=== PATIENT | female | born 2000 | race Caucasian/White ===

== ENCOUNTER 2022-03-09 15:29 | Inpatient (IN) ==
[2022-03-09 16:36] LABS: Appearance Urine Clear (Clear); Bilirubin Urine Negative (Negative); Blood Urine Negative (Negative); Color Urine Yellow; Glucose Urine UA Negative (Negative); Ketones Urine Negative (Negative); Leukocyte Esterase Urine Negative (Negative); Nitrite Urine Negative (Negative); Pregnancy Test, Urine Negative (Negative); Protein Urine Negative (Negative); Specific Gravity Urine 1.016 (1.000-1.030); Urobilinogen Urine Negative (Negative); pH Urine 6.5 (4.5-7.5)
[2022-03-09 16:52] LABS: Basophils # (auto) 0.03 K/uL (0-0.2); Basophils % (auto) 0.5 %; Eosinophils # (auto) 0.07 K/uL (0-0.50); Eosinophils % (auto) 1.1 %; Hematocrit (blood only) 41.7 % (34.1-44.9); Hemoglobin 14.3 g/dl (12.0-16.0); Immature Granulocytes # (auto) 0.02 K/uL (0.00-0.02); Immature Granulocytes % (auto) 0.3 %; Lymphocytes # (auto) 2.73 K/uL (1.2-3.4); Lymphocytes % (auto) 43.8 %; Mean Corpuscular Hemoglobin 28.2 pg (25.0-34.0); Mean Corpuscular Hgb Conc 34.3 g/dL (32.0-36.0); Mean Corpuscular Volume 82.2 fL (80.0-100.0); Mean Platelet Volume 10.3 fL (9.4-12.3); Monocytes # (auto) 0.36 K/uL (0.24-0.82); Monocytes % (auto) 5.8 %; Neutrophils # (auto) 3.03 K/uL (1.4-6.5); Neutrophils % (auto) 48.5 %; Platelet Count 295 K/uL (130-400); Red Blood Count 5.07 M/uL (3.93-5.22); White Blood Count 6.24 K/ul (4.8-10.8)
--- NOTE | 2022-03-09 17:01 | Emergency Department Note ---
Impression & Plan Depression with suicidal ideation ED Provider Note Provider: Darrel Freeman MD DATE OF SERVICE: 03/09/2022 CHIEF COMPLAINT: Bad thoughts HISTORY OF PRESENT ILLNESS: Patient is a 21-year-old female reports distant history of eating disorder presenting here today stating that she has had worse karon thoughts of depression and thoughts over the last year. Significant worsened over the semester. States now that at times she feels unsafe that she might try to harm her self but has not attempted. Patient states she not currently having eating disorder issues now. States he tried to talk to a counselor on campus but this was not very helpful. States she feels like there is so much building up and going on that she is under so much stress that she does not want a being alive anymore. Patient states she has been sleeping okay. Denies any drug or alcohol issues. States she used to be on psychotropic medicines in December for a month but it did not help so she stopped them and she is not feeling that safe regarding medications as to what she might do with them. REVIEW OF SYSTEMS: A total of 10 review of systems was obtained and negative except as stated above in the HPI. PAST MEDICAL HISTORY: As noted above MEDICATIONS: OCPs SOCIAL HISTORY: Some marijuana use, [facility] student from the [place] area by her report PHYSICAL EXAM: GENERAL: alert and oriented seated on the bed crying Head: normocephalic and atraumatic EYES: No injection or icterus NECK: Trachea midline. ENT: Mucous membranes pink and moist. LUNGS: Airway patent. No retractions. Breath sounds clear with good air entry bilaterally. HEART: Regular rate and rhythm. No chest wall tenderness SKIN: Acyanotic, warm, dry, without rashes EXTREMITIES: Without swelling, tenderness or deformity NEUROLOGICAL: No focal deficits. No aphasia. No facial droop or slurred speech. Ambulatory. Psych: Very tearful and anxious. Denies hallucinations or HI. Reports significant SI but no clear plan or attempt. Patient's laboratory studies reviewed. Differential includes Mood disorder, infection, hypoglycemia, electrolyte abnormalities, cardiac sources, intracerebral event, toxicologic, trauma, neuro logic, as well as other pathologies. IMPRESSION/MEDICAL DECISION MAKING: Patient presents stating she is having very depressed and anxious thoughts. States she is feeling unsafe and that she might harm her self but does not have a plan. Basic labs completed. No significant abnormality noted. Not currently on medications. Seen with case management. Patient after discussion was wishing for inpatient treatment involuntary referral be made given her significant depression. Referral is made and accepted here for inpatient psychiatric care. Patient was in agreement and voluntary commitment signed. DIAGNOSIS: Depression with suicidal ideation. DISPOSITION: Accepted to [facility] [address] [facility] for further inpatient psychiatric care. Patient was agreeable with this plan. Past Med/Surg History Medical History (Updated 03/09/22 @ 23:46 by Darrel Freeman M.D.) No pertinent past medical history Surgical History (Updated 01/16/21 @ 07:13 by Greta Alvarez) No pertinent past surgical history Social History (System 01/16/21 @ 07:13 by Greta Alvarez) Smoking Status: Current some day smoker Tobacco Type: E-cigarettes / Vaping Preferred Language: Guatemalan Communication Ability: Effective Inspector Optical Instrument Required: No Beliefs That Will Affect Care: None Feels Safe at Home: Yes Assistive Devices: None Allergies Allergies Allergy/AdvReac Type Severity Reaction Status Date / Time No Known Allergies Allergy Unverified 02/02/21 13:32 Home Meds Home Medications Medication Instructions Recorded Confirmed norethindrone 1 mg-ethinyl 1 tab PO QAM 02/02/21 03/09/22 estradiol 20 mcg (21)-iron 75 mg (7) tablet (Ynes Fe 04/24 ()) Results & Data (ED) Vital Signs Vital Signs - 24 hr 03/09/22 15:42 03/09/22 19:16 Temperature 36.6 C 37.2 C Temperature Source Temporal Artery Scan Oral Pulse Rate 83 Pulse Rate [Finger] 79 Respiratory Rate 20 16 Respiratory Effort / Characteristics Non-Labored Non-Labored Spontaneous Respiratory Depth Normal Normal Respiratory Pattern Regular Blood Pressure 154/89 H Blood Pressure [Right Arm] 123/65 Blood Pressure Mean 110 Blood Pressure Mean [Right Arm] 84 Pulse Oximetry 93 98 Oxygen Delivery Method Room Air Room Air Sepsis Recent Fever Within 48 Hours No Sepsis New/Unexplained Change in Mental Status N/A Sepsis Action Taken by Nursing No Action Required Laboratory Data Result diagrams: 03/09/22 16:30 03/09/22 16:30 Lab Results 03/09/22 03/09/22 03/09/22 Range/Units 16:00 16:00 16:00 WBC (4.8-10.8) K/ul RBC (3.93-5.22) M/uL Hgb (12.0-16.0) g/dl Hct (34.1-44.9) % MCV (80.0-100.0) fL MCH (25.0-34.0) pg MCHC (32.0-36.0) g/dL RDW Std Deviation (36.4-46.3) fL RDW Coeff of Kathrine (11.5-14.5) % Plt Count (130-400) K/uL MPV (9.4-12.3) fL Immature Gran % (Auto) % Neut % (Auto) % Lymph % (Auto) % Bailey % (Auto) % Eos % (Auto) % Baso % (Auto) % Neut # (Auto) (1.4-6.5) K/uL Lymph # (Auto) (1.2-3.4) K/uL Bailey # (Auto) (0.24-0.82) K/uL Eos # (Auto) (0-0.50) K/uL Baso # (Auto) (0-0.2) K/uL Immature Gran # (Auto) (0.00-0.02) K/uL Sodium (136-145) mmol/L Potassium (3.5-5.1) mmol/L Chloride (98-107) mmol/L Carbon Dioxide (21-32) mmol/L Anion Gap (3-11) BUN (6-23) mg/dl Creatinine (0.6-1.2) mg/dl Est Cr Clr Drug Dosing ml/min Est GFR ( Amer) ml/min Est GFR (Non-Af Amer) ml/min BUN/Creatinine Ratio (10-20) Glucose (70-99(Fasting)) mg/dl Calcium (8.5-10.1) mg/dl Total Bilirubin (0.2-1.0) mg/dl AST (13-39) U/L ALT (7-52) U/L Alkaline Phosphatase (34-104) U/L Total Protein (6.0-8.3) gm/dl Albumin (3.4-5.0) gm/dl Globulin (2.5-4.0) gm/dl Albumin/Globulin Ratio (0.9-2) TSH (0.300-4.500) uIu/ml Urine Color Yellow Urine Appearance Clear (Clear) Urine pH 6.5 (4.5-7.5) Ur Specific [place] 1.016 (1.000-1.030) Urine Protein Negative (Negative) Urine Glucose (UA) Negative (Negative) Urine Ketones Negative (Negative) Urine Blood Negative (Negative) Urine Nitrite Negative (Negative) Urine Bilirubin Negative (Negative) Urine Urobilinogen Negative (Negative) Ur Leukocyte Esterase Negative (Negative) Urine Test Negative (Negative) Salicylates (3.0-30) mg/dl Urine Opiates Screen Neg (Neg) Ur Methadone, Qual Neg (Neg) Acetaminophen (10-30) ug/ml Urine Barbiturates Neg (Neg) Ur Phencyclidine (PCP) Neg (Neg) U Amphetamin/Meth Scrn Neg (Neg) MDMA (Ecstasy) Screen Neg (Neg) U Benzodiazepines Scrn Neg (Neg) Ur Cocaine Metabolite Neg (Neg) U Marijuana (THC) Screen Pos H (Neg) Ethyl Alcohol mg/dL (<10.0) mg/dl SARS-CoV-2, RNA, NAAT (NEGATIVE) 03/09/22 03/09/22 03/09/22 Range/Units 16:30 16:30 16:30 WBC 6.24 (4.8-10.8) K/ul RBC 5.07 (3.93-5.22) M/uL Hgb 14.3 (12.0-16.0) g/dl Hct 41.7 (34.1-44.9) % MCV 82.2 (80.0-100.0) fL MCH 28.2 (25.0-34.0) pg MCHC 34.3 (32.0-36.0) g/dL RDW Std Deviation 39.0 (36.4-46.3) fL RDW Coeff of Kathrine 13.0 (11.5-14.5) % Plt Count 295 (130-400) K/uL MPV 10.3 (9.4-12.3) fL Immature Gran % (Auto) 0.3 % Neut % (Auto) 48.5 % Lymph % (Auto) 43.8 % Bailey % (Auto) 5.8 % Eos % (Auto) 1.1 % Baso % (Auto) 0.5 % Neut # (Auto) 3.03 (1.4-6.5) K/uL Lymph # (Auto) 2.73 (1.2-3.4) K/uL Bailey # (Auto) 0.36 (0.24-0.82) K/uL Eos # (Auto) 0.07 (0-0.50) K/uL Baso # (Auto) 0.03 (0-0.2) K/uL Immature Gran # (Auto) 0.02 (0.00-0.02) K/uL Sodium 137 (136-145) mmol/L Potassium 3.7 (3.5-5.1) mmol/L Chloride 102 (98-107) mmol/L Carbon Dioxide 27 (21-32) mmol/L Anion Gap 8 (3-11) BUN 9 (6-23) mg/dl Creatinine 0.83 (0.6-1.2) mg/dl Est Cr Clr Drug Dosing 127.1 ml/min Est GFR ( Amer) 118.5 ml/min Est GFR (Non-Af Amer) 102.2 ml/min BUN/Creatinine Ratio 10.8 (10-20) Glucose 86 (70-99(Fasting)) mg/dl Calcium 9.9 (8.5-10.1) mg/dl Total Bilirubin 0.6 (0.2-1.0) mg/dl AST 12 L (13-39) U/L ALT 4 L (7-52) U/L Alkaline Phosphatase 50 (34-104) U/L Total Protein 7.8 (6.0-8.3) gm/dl Albumin 4.5 (3.4-5.0) gm/dl Globulin 3.3 (2.5-4.0) gm/dl Albumin/Globulin Ratio 1.4 (0.9-2) TSH 1.486 (0.300-4.500) uIu/ml Urine Color Urine Appearance (Clear) Urine pH (4.5-7.5) Ur Specific [place] (1.000-1.030) Urine Protein (Negative) Urine Glucose (UA) (Negative) Urine Ketones (Negative) Urine Blood (Negative) Urine Nitrite (Negative) Urine Bilirubin (Negative) Urine Urobilinogen (Negative) Ur Leukocyte Esterase (Negative) Urine Test (Negative) Salicylates (3.0-30) mg/dl Urine Opiates Screen (Neg) Ur Methadone, Qual (Neg) Acetaminophen (10-30) ug/ml Urine Barbiturates (Neg) Ur Phencyclidine (PCP) (Neg) U Amphetamin/Meth Scrn (Neg) MDMA (Ecstasy) Screen (Neg) U Benzodiazepines Scrn (Neg) Ur Cocaine Metabolite (Neg) U Marijuana (THC) Screen (Neg) Ethyl Alcohol mg/dL (<10.0) mg/dl SARS-CoV-2, RNA, NAAT (NEGATIVE) 03/09/22 03/09/22 03/09/22 Range/Units 16:30 16:30 16:50 WBC (4.8-10.8) K/ul RBC (3.93-5.22) M/uL Hgb (12.0-16.0) g/dl Hct (34.1-44.9) % MCV (80.0-100.0) fL MCH (25.0-34.0) pg MCHC (32.0-36.0) g/dL RDW Std Deviation (36.4-46.3) fL RDW Coeff of Kathrine (11.5-14.5) % Plt Count (130-400) K/uL MPV (9.4-12.3) fL Immature Gran % (Auto) % Neut % (Auto) % Lymph % (Auto) % Bailey % (Auto) % Eos % (Auto) % Baso % (Auto) % Neut # (Auto) (1.4-6.5) K/uL Lymph # (Auto) (1.2-3.4) K/uL Bailey # (Auto) (0.24-0.82) K/uL Eos # (Auto) (0-0.50) K/uL Baso # (Auto) (0-0.2) K/uL Immature Gran # (Auto) (0.00-0.02) K/uL Sodium (136-145) mmol/L Potassium (3.5-5.1) mmol/L Chloride (98-107) mmol/L Carbon Dioxide (21-32) mmol/L Anion Gap (3-11) BUN (6-23) mg/dl Creatinine (0.6-1.2) mg/dl Est Cr Clr Drug Dosing ml/min Est GFR ( Amer) ml/min Est GFR (Non-Af Amer) ml/min BUN/Creatinine Ratio (10-20) Glucose (70-99(Fasting)) mg/dl Calcium (8.5-10.1) mg/dl Total Bilirubin (0.2-1.0) mg/dl AST (13-39) U/L ALT (7-52) U/L Alkaline Phosphatase (34-104) U/L Total Protein (6.0-8.3) gm/dl Albumin (3.4-5.0) gm/dl Globulin (2.5-4.0) gm/dl Albumin/Globulin Ratio (0.9-2) TSH (0.300-4.500) uIu/ml Urine Color Urine Appearance (Clear) Urine pH (4.5-7.5) Ur Specific [place] (1.000-1.030) Urine Protein (Negative) Urine Glucose (UA) (Negative) Urine Ketones (Negative) Urine Blood (Negative) Urine Nitrite (Negative) Urine Bilirubin (Negative) Urine Urobilinogen (Negative) Ur Leukocyte Esterase (Negative) Urine Test (Negative) Salicylates < 3.0 L (3.0-30) mg/dl Urine Opiates Screen (Neg) Ur Methadone, Qual (Neg) Acetaminophen < 3 L (10-30) ug/ml Urine Barbiturates (Neg) Ur Phencyclidine (PCP) (Neg) U Amphetamin/Meth Scrn (Neg) MDMA (Ecstasy) Screen (Neg) U Benzodiazepines Scrn (Neg) Ur Cocaine Metabolite (Neg) U Marijuana (THC) Screen (Neg) Ethyl Alcohol mg/dL < 10.0 (<10.0) mg/dl SARS-CoV-2, RNA, NAAT NEGATIVE (NEGATIVE) Discharge Plan Visit Data Chief Complaint: Mental Health Evaluation Stated Complaint: MENTAL HEALTH EVAULATION ED Provider: Darrel Freeman Discharge Problem: Depression with suicidal ideation Patient Disposition: Admitted As Inpatient Discharge Instructions Interventions: ED Discharge Assessment Last Done: 03/09/22 21:10
[2022-03-09 17:16] LABS: Acetaminophen < 3 ug/ml (10-30); Albumin Globulin Ratio 1.4 (0.9-2); Albumin Level 4.5 gm/dl (3.4-5.0); BUN Creatinine Ratio 10.8 (10-20); Bilirubin,Total 0.6 mg/dl (0.2-1.0); Calcium 9.9 mg/dl (8.5-10.1); Creatinine Clr Calc Pharmacy 127.1 ml/min; Est GFR (African American) 118.5 ml/min; Est GFR (Non-African American) 102.2 ml/min; Globulin 3.3 gm/dl (2.5-4.0); Potassium 3.7 mmol/L (3.5-5.1); Salicylate < 3.0 mg/dl (3.0-30); Total Protein 7.8 gm/dl (6.0-8.3)
[2022-03-09 17:34] LABS: Amphetamines+Metham, Urine Neg (Neg); Barbiturates, Urine Neg (Neg); Benzodiazepine, Urine Neg (Neg); Cocaine, Urine Neg (Neg); MDMA (Ecstacy), Urine Neg (Neg); Methadone, Urine Neg (Neg); Opiate, Urine Neg (Neg); Phencyclidine, Urine Neg (Neg)
[2022-03-09 19:17] VITALS: O2SAT 98
[2022-03-09] MEDS ORDERED: ALUMINUM/MAGNESIUM SUSP 30 ML UDC PO PRN (19:21)
[2022-03-09] MEDS ORDERED: hydrOXYzine HCl 25 MG TAB PO PRN (19:21)
[2022-03-09] MEDS ORDERED: ACETAMINOPHEN 325 MG TAB PO PRN (19:21)
[2022-03-09] MEDS ORDERED: MAGNESIUM HYDROXIDE SUSP 30 ML UDC PO PRN (19:21)
[2022-03-09] MEDS ORDERED: BISMUTH SUBSALICYLATE LIQD 236 ML PO PRN (19:21)
[2022-03-09] MEDS ORDERED: SODIUM CHLORIDE 0.65% NA SOLN 45 ML (OCEAN) PRN ×2 (19:21→19:27)
[2022-03-10] MEDS: LO LOESTRIN FE SCH ×2 (00:01→21:12)
[2022-03-10] MEDS ORDERED: NON-FORMULARY PATIENT'S OWN MED SCH (09:00)
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
[2022-03-10] MEDS: hydrOXYzine HCl 25 MG TAB PO PRN ×2 (22:52)
--- NOTE | 2022-03-11 12:28 | Psychiatric Progress Note ---
Date of Service March 11, 2022 Impression / Recommendations Impression 21 yo female with multiple vegetative symptoms of depression, hx of eating disorder with recent recurrence of excessive exercise this summer with possible misuse of energy drinks or possibly even hypomania, currently self-medicating with a significant amount of synthetic THC. No evidence of psychosis on mental status exam but could be contributing to presentation. 03/11/22--essentially unchanged (1) Depression with suicidal ideation: Plan 03/11/22: patient agreeable to trial of melatonin at . wants to avoid antidepressants. 03/10/22: The patient was admitted to the [facility] ([facility] mental health unit) on q15 min checks (behavioral with suicide precautions) for safety. The patient will participate in group, recreational, and milieu therapies and will be offered additional individual and family sessions as clinically appropriate. Inventory Assets Strengths: intelligent, help seeking Needs: improve coping skills, outpatient providers Suicide Risk Level Suicide Risk Level: High-Moderate (q15 min suicide checks) Risk Factors Assessment Do You Have Access To A Gun?: No Mental Health Diagnoses: Yes Previous Attempt: No Previous Psychiatric Hospitalization: No Protective Factors Assessment Employed: No Supportive Family: No Interval History Identifying Information LOW MCCURDY is a 21-year-old F, [employer] sophomore from [facility] was admitted on 03/09/22 19:28 on a 201 voluntary commitment for suicidal thoughts and difficulty functioning. Chief Complaint "yeah, everything has been alot, I realized I have to stop the synthetics too." Review of Systems Sleep Information Total Hours of Sleep: 5.5 Sleep Comments: Received Vistaril for sleep at 2252 Meal Information Percent Meal Consumed - Breakfast: 100 Percent Meal Consumed - Lunch: 100 Percent Meal Consumed - Dinner: 100 Subjective Subjective Patient was seen & assessed and interval progress reviewed with treatment team. Vistaril prn for sleep moderately effective, realizes she is dependent on vaping to sleep. slept through self-awareness group but did attend community meeting and speak with parents on the phone. Still minimizing any need to for regular ED treatment, doesn't deny body dysmorphia or symptoms but says "I know what to do." Physical Exam Psychiatric Orientation: alert and oriented x 3 Apperance: appropriately dressed and appropriately groomed Eye Contact: good eye contact Motor Behavior: no abnormal motor movements Speech: normal rate/rhythm/volume of speech Affect: + depressed affect Mood: + depressed mood Thought Process: goal directed thought process Thought Content: reality based without delusions Suicidal Thoughts: + reports suicidal thoughts (passive) Homicidal Thoughts: denies homicidal thoughts Hallucinations: no auditory hallucinations and no visual hallucinations Cognition: attention grossly intact and language grossly intact Estimated Intelligence: consistent with education level Insight: + limited insight Judgement: + limited judgement Vital Signs (Past 24 Hours) Last Vital Signs Temp 36.9 C 03/11/22 06:37 Pulse 83 03/11/22 06:38 Resp 16 03/11/22 06:37 BP 111/73 03/11/22 06:38 Pulse Ox 98 03/09/22 19:16 O2 Del Method 03/09/22 19:16 Results & Data ([facility]) Current Inpatient Medications Current Inpatient Medications: Current Inpatient Medications Acetaminophen (Acetaminophen 325 Mg Tab) 650 mg PO Q4H PRN PRN Reason: Headache or Minor Fever Stop: 04/08/22 19:20 Al Hydrox/Mg Hydrox/Simethicone (Aluminum/Magnesium Susp 30 Ml Udc) 30 ml PO Q4H PRN PRN Reason: GI Upset Stop: 04/08/22 19:20 Bismuth Subsalicylate (Bismuth Subsalicylate Liqd 236 Ml) 15 ml PO PRN PRN PRN Reason: Loose Stool Stop: 04/08/22 19:20 Hydroxyzine HCl (Hydroxyzine Hcl 25 Mg Tab) 50 mg PO HSZ PRN PRN Reason: Insomnia Stop: 04/08/22 19:20 Last Admin: 03/10/22 22:52 Dose: 50 mg Hydroxyzine HCl (Hydroxyzine Hcl 25 Mg Tab) 25 mg PO Q4H PRN PRN Reason: Anxiety Stop: 04/08/22 19:20 Magnesium Hydroxide (Magnesium Hydroxide Susp 30 Ml Udc) 30 ml PO DAILY PRN PRN Reason: Constipation Stop: 04/08/22 19:20 Lo Loestrin Fe - (Patient's Own Med) 1 each N/A HS GUALBERTO Stop: 04/08/22 23:58 Last Admin: 03/10/22 21:12 Dose: 1 each Sodium Chloride (Sodium Chloride 0.65% Na Soln 45 Ml ([place])) 1 - 2 sprays NA PRN PRN PRN Reason: Nasal Dryness/Congestion Stop: 04/08/22 19:20
[2022-03-11] MEDS: LO LOESTRIN FE SCH (21:46)
[2022-03-11] MEDS ORDERED: MELATONIN 3 MG TAB PO SCH (22:00)
[2022-03-12 09:38] LABS: Marijuana Quant, GCMS Urine 874 ng/mL (<5)
--- NOTE | 2022-03-12 12:08 | Psychiatric Progress Note ---
Date of Service March 12, 2022 Impression / Recommendations Impression 21 yo female with multiple vegetative symptoms of depression, hx of eating disorder with recent recurrence of excessive exercise this summer with possible misuse of energy drinks or possibly even hypomania, currently self-medicating with a significant amount of synthetic THC. No evidence of psychosis on mental status exam but could be contributing to presentation. 03/12/22--somatic, circular reporting (1) Depression with suicidal ideation: Plan 03/12/22: needs family meeting, increase melatonin, declined tylenol and ibuprofen for RODRIGUEZ. 03/11/22: patient agreeable to trial of melatonin at . wants to avoid antidepressants. 03/10/22: The patient was admitted to the [facility] ([facility] mental health unit) on q15 min checks (behavioral with suicide precautions) for safety. The patient will participate in group, recreational, and milieu therapies and will be offered additional individual and family sessions as clinically appropriate. Inventory Assets Strengths: intelligent, help seeking Needs: improve coping skills, outpatient providers Suicide Risk Level Suicide Risk Level: Moderate (q15 min suicide checks) Risk Factors Assessment Do You Have Access To A Gun?: No Mental Health Diagnoses: Yes Previous Attempt: No Previous Psychiatric Hospitalization: No Protective Factors Assessment Employed: No Supportive Family: No Interval History Identifying Information LOW MCCURDY is a 21-year-old F, [employer] sophomore from [facility] was admitted on 03/09/22 19:28 on a 201 voluntary commitment for suicidal thoughts and difficulty functioning. Chief Complaint "I have a headache". Review of Systems Sleep Information Total Hours of Sleep: 6 Sleep Comments: Received Vistaril for sleep at 2252 Meal Information Percent Meal Consumed - Breakfast: 100 Percent Meal Consumed - Lunch: 100 Percent Meal Consumed - Dinner: 100 Subjective Subjective Patient was seen & assessed and interval progress reviewed with nursing and social work. The patient denies that she drinks much caffeine on a regular basis outside of the hospital and feels her symptoms may be related to a boxing strain (fitness work out) or withdrawal from synthetics. She is attending groups. She states she fell asleep faster with melatonin but later woke up throughout night. Physical Exam Psychiatric Orientation: alert and oriented x 3 Apperance: appropriately dressed and appropriately groomed Eye Contact: good eye contact Motor Behavior: no abnormal motor movements Speech: normal rate/rhythm/volume of speech Affect: + depressed affect Mood: + depressed mood Thought Process: goal directed thought process Thought Content: reality based without delusions Suicidal Thoughts: denies suicidal thoughts Homicidal Thoughts: denies homicidal thoughts Hallucinations: no auditory hallucinations and no visual hallucinations Cognition: attention grossly intact and language grossly intact Estimated Intelligence: consistent with education level Insight: + limited insight Judgement: + limited judgement Vital Signs (Past 24 Hours) Last Vital Signs Temp 37 C 03/12/22 06:36 Pulse 82 03/12/22 06:36 Resp 16 03/12/22 06:36 BP 106/53 L 03/12/22 06:36 Pulse Ox 98 03/09/22 19:16 O2 Del Method 03/09/22 19:16 Results & Data ([facility]) Laboratory Results Laboratory Results - last 24 hr 03/09/22 16:00 U Marijuana THC Carboxy 874 H Drug Screen Comment SEE NOTE Current Inpatient Medications Current Inpatient Medications: Current Inpatient Medications Acetaminophen (Acetaminophen 325 Mg Tab) 650 mg PO Q4H PRN PRN Reason: Headache or Minor Fever Stop: 04/08/22 19:20 Last Admin: 03/12/22 07:04 Dose: 650 mg Al Hydrox/Mg Hydrox/Simethicone (Aluminum/Magnesium Susp 30 Ml Udc) 30 ml PO Q4H PRN PRN Reason: GI Upset Stop: 04/08/22 19:20 Bismuth Subsalicylate (Bismuth Subsalicylate Liqd 236 Ml) 15 ml PO PRN PRN PRN Reason: Loose Stool Stop: 04/08/22 19:20 Hydroxyzine HCl (Hydroxyzine Hcl 25 Mg Tab) 50 mg PO HSZ PRN PRN Reason: Insomnia Stop: 04/08/22 19:20 Last Admin: 03/10/22 22:52 Dose: 50 mg Hydroxyzine HCl (Hydroxyzine Hcl 25 Mg Tab) 25 mg PO Q4H PRN PRN Reason: Anxiety Stop: 04/08/22 19:20 Magnesium Hydroxide (Magnesium Hydroxide Susp 30 Ml Udc) 30 ml PO DAILY PRN PRN Reason: Constipation Stop: 04/08/22 19:20 Melatonin (Melatonin 3 Mg Tab) 3 mg PO HS GUALBERTO Stop: 04/10/22 21:59 Last Admin: 03/11/22 21:46 Dose: 3 mg Lo Loestrin Fe - (Patient's Own Med) 1 each N/A HS GUALBERTO Stop: 04/08/22 23:58 Last Admin: 03/11/22 21:46 Dose: 1 each Sodium Chloride (Sodium Chloride 0.65% Na Soln 45 Ml ([place])) 1 - 2 sprays NA PRN PRN PRN Reason: Nasal Dryness/Congestion Stop: 04/08/22 19:20 Mental Health & Subst Abuse Tx Therapist Name of Therapist: [facility] Therapist's Therapy Appointment Comment: [address] [place], [place] [address] [address] Post Discharge Appointments Primary Care Physician Name Of Family Doctor: [facility] Time of Appointment with PCP: Follow up with PCP as needed. Provider Appointment Comment: [facility] [place] Contact Information [facility]charge [facility] [id number]
[2022-03-12] MEDS ORDERED: MELATONIN 3 MG TAB PO SCH (22:00)
[2022-03-12] MEDS: LO LOESTRIN FE SCH (22:24)
[2022-03-13 06:30] VITALS: TEMP 97.5
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
[2022-03-13 09:57] VITALS: BP 123/65; PULSE 79
== END 2022-03-13 11:05 | disposition home or self-care (01) | DRG 881 ==
LOC: ED 15:29 → 3S 19:28